=== PATIENT | male | born 1980 | race Hispanic/Latino ===

== ENCOUNTER 2018-11-15 15:38 | Emergency (ER) | payer OTHER ==
[2018-11-15] MEDS ORDERED: NARCAN 0.4 MG/1 ML IV ONE (16:39)
[2018-11-15] MEDS ORDERED: NACL 0.9% 1000 ML 1,000 ML IV ONE ×2 (16:39→21:44)
--- NOTE | 2018-11-15 17:03 | Emergency Department Report ---
History of Present Illness - General Chief Complaint: Overdose Stated Complaint: OD Time Seen by Provider: 11/15/18 16:38 Source: EMS, old records reviewed Mode of arrival: Stretcher Limitations: Physical Limitation - History of Present Illness Initial Comments: Mr. Kim is a 38-year-old male with unknown medical history who presents after drug overdose. He came by EMS with unresponsive mental status. EMS was called by a friend. From his car in a [employer] parking lot. Friend informed paramedics that he took 4 pills of Xanax not his own medication. Also had 2 shots of tequila. Patient's were was unresponsive upon arrival per EMS. He was given 0.5 mg grams of Romazicon. He was able to have a conversation. Since that time become unresponsive again. Complaint: accidental overdose -: Sudden Intent: unknown How Overdose Was Discovered: family/friend present, called 911 Context: Accidental Overdose: wanted to get high, was drinking then took pi Treatments Prior to Arrival: other (Romazicon) - Related Data Previous Rx's Medication Instructions Recorded Last Taken Type HYDROcodone/APAP 5-325 [Freedom 1 - 2 each PO Q6HR PRN #20 tablet 07/14/13 Unknown Rx 5/325 mg] Naproxen [Naprosyn] 500 mg PO BID #40 tablet 07/14/13 Unknown Rx predniSONE [Deltasone] 50 mg PO QDAY #4 tab 07/14/13 Unknown Rx Allergies Allergy/AdvReac Type Severity Reaction Status Date / Time No Known Allergies Allergy Unverified 07/14/13 16:19 ED Review of Systems ROS: Stated complaint: OD Other details as noted in HPI Comment: Unobtainable due to pts medical conditions (altered mental status and intoxication) ED Past Medical Hx - Past Medical History Previous Medical History?: No - Surgical History Past Surgical History?: No - Social History Smoking Status: Unknown if ever smoked - Medications Home Medications: Home Medications Medication Instructions Recorded Confirmed Last Taken Type HYDROcodone/APAP 5-325 [Freedom 1 - 2 each PO Q6HR PRN #20 tablet 07/14/13 Unknown Rx 5/325 mg] Naproxen [Naprosyn] 500 mg PO BID #40 tablet 07/14/13 Unknown Rx predniSONE [Deltasone] 50 mg PO QDAY #4 tab 07/14/13 Unknown Rx ED Physical Exam - General Limitations: Physical Limitation General appearance: lethargic, other (withdrawals to sternal rub) - Head Head exam: Present: atraumatic, normocephalic - Eye Eye exam: Present: normal appearance, PERRL. Absent: scleral icterus, conjunctival injection - ENT ENT exam: Present: mucous membranes moist - Neck Neck exam: Present: normal inspection, full ROM - Respiratory Respiratory exam: Present: normal lung sounds bilaterally. Absent: respiratory distress, wheezes, rales, rhonchi - Cardiovascular Cardiovascular Exam: Present: regular rate, normal rhythm, normal heart sounds. Absent: systolic murmur, diastolic murmur, rubs, gallop - GI/Abdominal GI/Abdominal exam: Present: soft, normal bowel sounds. Absent: distended, te nderness, guarding, rebound - Rectal Rectal exam: Present: deferred - Extremities Exam Extremities exam: Present: normal inspection - Back Exam Back exam: Present: normal inspection - Neurological Exam Neurological exam: Present: altered - Psychiatric Psychiatric exam: Present: flat affect - Skin Skin exam: Present: warm, dry, intact, normal color. Absent: rash ED Course Vital Signs 11/15/18 11/15/18 11/15/18 16:14 18:20 18:30 Temperature 98.4 F Pulse Rate 106 H 91 H 90 Respiratory 17 18 19 Rate Blood Pressure 94/48 Blood Pressure 94/48 [Right] O2 Sat by Pulse 97 100 100 Oximetry 11/15/18 11/15/18 11/15/18 18:45 19:00 19:12 Temperature Pulse Rate 88 82 83 Respiratory 19 16 17 Rate Blood Pressure 125/85 125/85 Blood Pressure 112/75 [Right] O2 Sat by Pulse 100 100 100 Oximetry 11/15/18 11/15/18 11/15/18 19:20 19:30 19:45 Temperature Pulse Rate 82 87 85 Respiratory 18 18 18 Rate Blood Pressure 116/79 108/70 Blood Pressure [Right] O2 Sat by Pulse 100 100 99 Oximetry 11/15/18 11/15/18 11/15/18 19:59 20:00 20:15 Temperature Pulse Rate 84 86 Respiratory 18 18 19 Rate Blood Pressure 115/72 115/72 Blood Pressure [Right] O2 Sat by Pulse 100 Oximetry 11/15/18 11/15/18 11/15/18 20:30 20:45 21:01 Temperature Pulse Rate 84 83 81 Respiratory 18 18 17 Rate Blood Pressure 113/76 113/76 118/71 Blood Pressure [Right] O2 Sat by Pulse 100 99 Oximetry 11/15/18 11/15/18 11/15/18 21:15 21:30 21:45 Temperature Pulse Rate 84 85 78 Respiratory 17 20 18 Rate Blood Pressure 118/71 133/88 133/88 Blood Pressure [Right] O2 Sat by Pulse 100 99 100 Oximetry 11/15/18 11/15/18 11/15/18 22:00 22:15 22:30 Temperature Pulse Rate 79 78 78 Respiratory 17 17 18 Rate Blood Pressure 111/76 133/88 110/75 Blood Pressure [Right] O2 Sat by Pulse 100 100 100 Oximetry ED Medical Decision Making - Lab Data Result diagrams: 11/15/18 16:48 11/15/18 16:48 - EKG Data 11/15/18 17:07 EKG obtained 1652 indication drug overdose Sinus tachycardia rate 100 beats a minute normal axis intervals no significant ST elevation or signs of ischemia normal T wave patternand Q waves - Medical Decision Making Mr. Kim presents with intentional suicide attempt. He was taped by a friend while intentionally overdose. Mother called ED staff to inform that the video was posted on [employer]. HE did intend to harm himself, commit suicide due to romantic conflict with signficant other. After 7 hours observation, he is slowly awakening. He is drowsy, will not give hx. Once awake, he is medically clear for psychiatric care. I do not detect evide nce of lethal or toxic overdose which will cause harm. Placed on 1013 involuntary hold. Will need further psychiatric treatment. Critical care attestation.: If time is entered above; I have spent that time in minutes in the direct care of this critically ill patient, excluding procedure time. ED Disposition Clinical Impression: Intentional drug overdose, Suicide attempt, Acute metabolic encephalopathy Disposition: DC/TX-70 ANOTHER TYPE [facility]THCARE Is pt being admited?: No Does the pt Need Aspirin: No Condition: Stable
[2018-11-15 17:07] LABS: Basophils # (Auto) 0.1 K/mm3 (0.0-0.1); Basophils % (Auto) 0.9 % (0.0-1.8); Eosinophils # (Auto) 0.3 K/mm3 (0.0-0.4); Eosinophils % (Auto) 3.7 % (0.0-4.3); Hematocrit 45.7 % (35.5-45.6); Hemoglobin 15.5 gm/dl (11.8-15.2); Lymphocytes # (Auto) 3.3 K/mm3 (1.2-5.4); Lymphocytes % (Auto) 46.3 % (13.4-35.0); Mean Corpuscular HGB Conc 34 % (32-34); Mean Corpuscular Volume 99 fl (84-94); Monocytes # (Auto) 0.4 K/mm3 (0.0-0.8); Monocytes % (Auto) 5.1 % (0.0-7.3); Platelet Count 210 K/mm3 (140-440); Red Blood Count 4.62 M/mm3 (3.65-5.03); Red Cell Distribution Width 13.3 % (13.2-15.2)
[2018-11-15 17:43] LABS: Alanine Aminotransferase 15 units/L (7-56); Albumin 3.9 g/dL (3.9-5); BUN/Creatinine Ratio 10; Blood Urea Nitrogen 9 mg/dL (9-20); Calcium 8.3 mg/dL (8.4-10.2); Hemolysis Index 5
[2018-11-16 03:32] LABS: Bilirubin,Urine NEG (Negative); Blood,Urine NEG (Negative); Color,Urine Yellow (Yellow); Mucus,Urine FEW /HPF; Protein,Urine <15 mg/dL mg/dL (Negative); Urobilinogen,Urine < 2.0 mg/dL (<2.0)
[2018-11-16 03:54] LABS: Amphetamine Screen,Urine PRESUMPTIVE NEGATIVE; Cannabinoid Screen,Urine PRESUMPTIVE NEGATIVE; Cocaine Screen,Urine PRESUMPTIVE NEGATIVE; Methadone Screen,Urine PRESUMPTIVE NEGATIVE; Opiate Screen,Urine PRESUMPTIVE NEGATIVE
[2018-11-16 04:06] LABS: WBC,Urine < 1.0 /HPF (0.0-6.0)
[2018-11-16 04:25] LABS: Benzodiazepines Screen,Urine PRESUMPTIVE POSITIVE
--- NOTE | 2018-11-16 12:03 | Consultation ---
History of Present Illness - Reason for Consult Consult date: 11/16/18 Reason for consult: Mental Health Evaluation Requesting physician: RAND GOSS - Chief Complaint Chief complaint: "I wanted it to be over" - History of Present Psychiatric Illness 38 y.o. male who presented to the ER for intentional overdose on Xanax pills. Today the patient is calm, but vague during the assessment. He stated that he is having issues referencing transportation to and from work. Also, the patient is having relationship conflict. He didn't go into details about either issues when asked . He did say that his ex-girlfriend didn't want to be with him anymore. He stated that he had no reason to live yesterday, so he decided to overdose on Xanax. He rate his depression 5/10, with 10 being the worse. He denies Hi's and AVH's. He would not confirm or deny SI's. Per the record, the patient was recorded overdosing on the Xanax pills. Medications and Allergies Allergies Allergy/AdvReac Type Severity Reaction Status Date / Time No Known Allergies Allergy Unverified 07/14/13 16:19 Home Medications Medication Instructions Recorded Confirmed Last Taken Type HYDROcodone/APAP 5-325 [Clubb 1 - 2 each PO Q6HR PRN #20 tablet 07/14/13 Unknown Rx 5/325 mg] Naproxen [Naprosyn] 500 mg PO BID #40 tablet 07/14/13 Unknown Rx predniSONE [Deltasone] 50 mg PO QDAY #4 tab 07/14/13 Unknown Rx Past psychiatric history - Past Medical History Past Medical History: No medical history Past Surgical History: No surgical history - past Psychiatric treatment and history psychiatric treatment history: Denies a psy hx. and a fam psy hx. - Social History Social history: lives with family Mental Status Exam - Vital signs Last Vital Signs Temp 98.4 F 11/15/18 16:14 Pulse 103 H 11/16/18 09:01 Resp 20 11/16/18 09:01 BP 124/81 11/16/18 09:01 Pulse Ox 75 L 11/16/18 09:01 - Exam Narrative exam: MSE: Appearance: in hospital attire Behavior: regular eye contact Speech: regular rate and tone Mood: "depressed" Affect: congruent to mood Thought Process: circumstantial Thought Content: denies HI's and AVH's Motor Activity: ambulatory Cognition: A/O x3 Insight: variable Judgment: poor Results Result Diagrams: 11/15/18 16:48 11/15/18 16:48 Abnormal lab results 11/15/18 11/15/18 11/15/18 Range/Units 16:48 16:48 16:48 Hgb 15.5 H (11.8-15.2) gm/dl Hct 45.7 H (35.5-45.6) % MCV 99 H (84-94) fl MCH 34 H (28-32) pg Lymph % (Auto) 46.3 H (13.4-35.0) % Chloride 108.9 H (98-107) mmol/L Calcium 8.3 L (8.4-10.2) mg/dL Salicylates < 0.3 L (2.8-20.0) mg/dL Acetaminophen (10.0-30.0) ug/mL 11/15/18 Range/Units 16:48 Hgb (11.8-15.2) gm/dl Hct (35.5-45.6) % MCV (84-94) fl MCH (28-32) pg Lymph % (Auto) (13.4-35.0) % Chloride (98-107) mmol/L Calcium (8.4-10.2) mg/dL Salicylates (2.8-20.0) mg/dL Acetaminophen < 5.0 L (10.0-30.0) ug/mL All other labs normal. Assessment and Plan Assessment and plan: Impression: MDD, Severe. Today the patent was calm, but vague during the assessment. Recommendation/Plan: Continue 1013 and start Zoloft 50 mg PO daily for depression. Discussed possible suicidality/medication induced noemi with the patient reference Zoloft, he verbalized understanding. . Dispo: The patient was accepted at [facility] for inpatient psy services. Will staff with Dr. Phil Gould.
[2018-11-16] MEDS: ZOLOFT PO SCH (13:30)
[2018-11-17] MEDS ORDERED: D50W (25GM) Syringe IV ONE (10:33)
[2018-11-17] MEDS ORDERED: PROVENTIL IH ONE (10:43)
[2018-11-17] MEDS ORDERED: ATROVENT IH ONE (10:43)
[2018-11-17] MEDS: ZOLOFT PO SCH (10:50)
--- NOTE | 2018-11-17 12:44 | Progress Note ---
Subjective - Reason for Consult Consult date: 11/17/18 Reason for consult: Psychiatry Follow-up - Chief Complaint Chief complaint: "I was overwhelmed" 38 y.o. male who presented to the ER for intentional overdose on Xanax pills. Today the patient was calm and cooperative during the assessment. He stated that he was overwhelmed knowing that his girlfriend wanted ti break up with him. He is adamant that he made a terrible mistake overdosing over on Xanax pills. He did acknowledged that he attempted suicide several years ago when asked. He denies SI/HI's and AVH's. He denies any side effects of his medication. Mental Status Exam - Vital signs Last Vital Signs Temp 98.3 F 11/17/18 08:08 Pulse 69 11/17/18 08:08 Resp 16 11/17/18 08:08 BP 108/65 11/17/18 08:08 Pulse Ox 99 11/17/18 08:08 - Exam Narrative exam: MSE: Appearance: in hospital attire Behavior: regular eye contact Speech: regular rate and tone Mood: "okay" Affect: congruent to mood Thought Process: linear Thought Content: denies SI/HI's and AVH's Motor Activity: ambulatory Cognition: A/O x3 Insight: variable to fair Judgment: variable to fair Assessment and Plan Impression: MDD, Severe. Today the patent was calm and cooperative during the assessment. Recommendation/Plan: Continue 1013 and Zoloft 50 mg PO daily for depression. Discussed possible suicidality/medication induced noemi with the patient reference Zoloft, he verbalized understanding. . Dispo: The patient was referred to inpatient psty services. Will staff with Dr. Phil Gould.
[2018-11-18] MEDS: ZOLOFT PO SCH (10:24)
--- NOTE | 2018-11-18 12:50 | Progress Note ---
Subjective - Reason for Consult Consult date: 11/18/18 Reason for consult: Psychiatric Follow-up Evaluation - Chief Complaint Chief complaint: "I feel pretty good " Patient is a 38 y.o. male who presented to the ER for intentional overdose on Xanax pills. Today the patient is calm and cooperative during the assessment. He reports " I regret doing what I did. It was stupid and the reason was even more stupid. " He reports good sleep and appetite. He denies SI/HI's, AVH's, and delusions. Patient is medication compliant. He denies any side effects of his medication. Mental Status Exam - Vital signs Last Vital Signs Temp 98.7 F 11/18/18 09:00 Pulse 70 11/18/18 09:00 Resp 18 11/18/18 09:00 BP 105/71 11/18/18 09:00 Pulse Ox 98 11/18/18 09:00 - Exam Narrative exam: Mental Status Exam Appearance: in hospital attire ( green scrubs) Behavior: regular eye contact Speech: regular rate and tone Mood: "I feel pretty good" Affect: congruent to mood Thought Process: linear Thought Content: denies SI/HI's, AVH's, and delusions Motor Activity: ambulatory Cognition: A/O x 3 Insight: variable to fair Judgment: variable to fair Assessment and Plan Impression: MDD, Severe. Today the patient is calm and cooperative during the assessment. He denies SI/HI's, A/VH's, and delusions. Recommendation/Plan: 1. Will reevaluate 1013 in 24 hours. 2. Continue Zoloft 50 mg PO daily for depression. Discussed possible ron cidality/medication induced noemi with the patient reference Zoloft, he verbalized understanding. Disposition: The patient was referred to inpatient psychiatric services. Will staff with Dr. Phil Gould.
[2018-11-19] MEDS ORDERED: NARCAN 2 MG/2 ML ONE (08:03)
[2018-11-19 09:16] VITALS: BP 106/64
[2018-11-19] MEDS: ZOLOFT PO SCH (11:12)
--- NOTE | 2018-11-19 11:15 | Progress Note ---
Subjective - Reason for Consult Consult date: 11/19/18 Reason for consult: Psychiatry Follow-up - Chief Complaint Chief complaint: "I will not do that again" Patient is a 38 y.o. male who presented to the ER for intentional overdose on Xanax pills. Today the patient was calm and cooperative during the assessment. He stated that he will handle his crisis differently. He stated that he has a lot to live for. He stated that he will continue taking the Zolft and will follow up with outpatient psy services. He denies SI/HI's and AVH's. He denies any side effects of his medication. Mental Status Exam - Vital signs Last Vital Signs Temp 97.9 F 11/19/18 08:03 Pulse 56 L 11/19/18 08:03 Resp 18 11/19/18 08:03 BP 106/64 11/19/18 08:03 Pulse Ox 98 11/19/18 08:03 - Exam Narrative exam: MSE: Appearance: calm, cooperative Behavior: regular eye contact Speech: regular rate and tone Mood: "okay" Affect: congruent to mood Thought Process: linear Thought Content: denies SI/HI's and AVH's Motor Activity: ambulatory Cognition: A/O x3 Insight: appropriate Judgment: appropriate Assessment and Plan Impression: MDD, Severe. Today the patent was calm and cooperative during the assessment. The patient is no threat to self. Suicide Risk Assessment I. This screening and assessment is based on information collected from the following sources: II. SUICIDE RISK SCREENING (within last 30 days): A.) Suicidal thoughts/behaviors: Yes SUICIDE RISK ASSESSMENT III. FACTORS THAT INCREASE RISK: A.) Demographic and Substance Use Factors: NO B.) Current/Recent Factors (within past 3 months): Psychosocial/Environmental Factors: Life Stressors Physical Illness: None Cognitive/Psychological Factors: None C.) Historical Factors: None D.) Diagnostic/Symptom/Treatment Factors: None E.) Acute Risk Factor Severity (DESC; MILD/MOD/SEVERE): Mild Other factors for this individual that increase risk: None IV. FACTORS THAT DECREASE RISK: Resilience/Protective Factors: Patient want to handle crisis in a safe way Other factors for this individual that decrease risk: Patient denies a desire to harm self V. Clinician's Formulation of Risk and Determination of level of Care: This is a 38 y.o. male who ingested several Xanax pills prior to being brought to the ER (suicide attempt). He acknowledged that his actions were not safe and should have dealt with his crisis differently. He stated that she will follow-up with outpatient psy services once discharged. Since being hospitalized the patient has consistently denied the desire to harm himself. The patient is not impaired by substance. He is able to take care of his ADLs and is not at imminent risk of harm to self or others. Consequently, it is the opinion of the treatment team that the patient is at low risk of suicide and does not meet criteria to continue an involuntary psychiatric hold. Estimation of Imminent Risk: Low due to the above explanation. Determination of Level of Care based on Suicide Risk: Outpatient follow-up. Narrative description of clinical reasoning. Given the fact that the patient is willing to engage in outpatient psy services, it is reasonable to expect that the patient will seek services. He is regretful of the decision to overdose on Xanax pills. At this current time, he is not impulsive and does not have any risk factors to increase the likelihood of his impulsive behavior. Therefore, it is reasonable to expect that the patient will engage in outpatient psy services which will reduce further unsafe behaviors. . Plan and Interventions based on Suicide Risk: This patient will likely be stepped down to an outpatient mental health center in the community upon discharge and follow-up within 7 days of his discharge from the hospital. VII. Discharge/After Hours Support Plan: Patient can return back to the ER, ca ll 911 or crisis line if symptoms of depression, anxiety, suicidality return. Recommendation/Plan: Rescind 1013 and continue Zoloft 50 mg PO daily for depression. Discussed possible suicidality/medication induced noemi with the patient reference Zoloft, he verbalized understanding. safety Contract completed with the patient. Dispo: The patient can follow up with [facility] for outpatient psy services. Staffed with Dr. Phil Gould.
== END 2018-11-19 13:36 | disposition home or self-care (01) ==
LOC: ED 15:38 → EEVIPCON 15:38 → ED 11-19 13:36
DX: T42.4X2A Poisoning by benzodiazepines, intentional self-harm, initial encounter (principal); G93.41 Metabolic encephalopathy; Y92.89 Other specified places as the place of occurrence of the external cause
CPT/HCPCS: 36415; 80053; 80307; 81001; 85025; 93005; 93010; 96374; 99285; G0480; J2310; J7030; 80320